=== PATIENT | female | born 1995 | race Caucasian/White ===

== ENCOUNTER 2022-01-04 14:43 | Emergency (ER) | payer OTHER ==
[~2022-01-04] VITALS: Ht 154.9 cm; Wt 75.7 kg
[2022-01-04] MEDS ORDERED: DIETHYLPROPION25 MG PO (15:04)
[2022-01-04] MEDS ORDERED: METFORMIN HCL750 MG PO (15:04)
== END 2022-01-04 15:50 | disposition home or self-care (01) ==
LOC: ER 14:43
DX: K29.70 Gastritis, unspecified, without bleeding (principal)